=== PATIENT | male | born 1980 | race Caucasian/White ===

== ENCOUNTER → 2019-03-14 16:37 | Outpatient (CLI) | payer OTHER, MEDICAID, SELFPAY ==
[2019-03-14 17:00] LABS: Influenza A and B by PCR Rapid Negative (Negative)
== END ==
PROVIDERS: Family Provider Family Medicine; PCP Family Medicine; Visit Provider Nurse Practitioner Family
DX: R52 Pain, unspecified (principal)
CPT/HCPCS: 87400; 87502

== ENCOUNTER → 2019-06-24 11:35 | Outpatient (CLI) | payer OTHER, MEDICAID, SELFPAY | PROVIDERS: Family Provider Family Medicine; PCP Family Medicine; Visit Provider Nurse Practitioner | DX: L02.91 Cutaneous abscess, unspecified (principal) | CPT/HCPCS: 87070; 87075; 87205 ==

== ENCOUNTER → 2020-06-18 12:38 | Outpatient (CLI) | payer OTHER, MEDICAID, SELFPAY ==
[2020-06-18 13:39] LABS: COVID19 -Nasal RAPID Negative (Negative)
== END ==
PROVIDERS: Family Provider Family Medicine; PCP Family Medicine; Visit Provider Physician Assistant
DX: Z20.822 Contact with and (suspected) exposure to COVID-19 (principal); J02.9 Acute pharyngitis, unspecified
CPT/HCPCS: 87070; 87635

== ENCOUNTER → 2020-06-25 14:27 | Outpatient (CLI) | payer OTHER, SELFPAY ==
[2020-06-25 15:17] LABS: Monotest Negative (Negative)
== END ==
PROVIDERS: Family Provider Family Medicine; PCP Family Medicine; Referring Provider Physician Assistant; Visit Provider Physician Assistant
DX: J02.9 Acute pharyngitis, unspecified (principal)
CPT/HCPCS: 36415; 86318

== ENCOUNTER 2021-01-18 10:57 | Emergency (ER) | payer OTHER, MEDICAID, SELFPAY ==
[2021-01-18 11:17] VITALS: BP 141/96; PULSE 73; RESP 14; TEMP 35.9; O2SAT 98; BMI 36.2
[2021-01-18 11:38] LABS: COVID19 -Nasal RAPID Negative (Negative)
--- NOTE | 2021-01-18 11:40 | ED.URI ---
HPI - URI/Sore Throat General Chief Complaint: Upper Respiratory Symptoms Stated Complaint: sore throat / nasel congestion Time Seen by Provider: 01/18/21 11:01 Source: patient Mode of arrival: Ambulatory Limitations: no limitations History of Present Illness HPI Narrative: 40-year-old male smoker with history of asthma and recent travel to [place] presents with concern about a COVID test. He states that he recently traveled and started developing symptoms last night including runny nose, nasal congestion, sore throat and some dry cough. He has no GI symptoms such as nausea, vomiting or diarrhea. He did get his COVID vaccination. 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 Related Data Home Medications Medication Instructions Recorded Confirmed esomeprazole magnesium 20 mg 20 mg PO #0 08/02/17 06/25/20 capsule,delayed release (Nexium) Previous Rx's Medication Instructions Recorded peak flow meter #1 each 06/08/19 fluticasone propionate 250 1 inh INHALATION BID #28 ea 08/23/20 mcg/actuation blister powder for inhalation hydroxyzine HCl 25 mg tablet 50 mg PO Q6H PRN #60 tab 10/30/20 albuterol sulfate 90 mcg/actuation 2 puff INHALATION Q4-6H PRN #1 12/17/20 aerosol inhaler device trazodone 150 mg tablet 75 mg PO DAILY #15 tab 12/25/20 Allergies Allergy/AdvReac Type Severity Reaction Status Date / Time Penicillins [PENICILLINS] AdvReac Mild RASH Verified 06/25/20 13:52 Review of Systems Review of Systems Narrative: GENERAL: See HPI HEENT: See HPI RESPIRATORY: See HPI CARDIOVASCULAR: Denies chest pain, palpitations, orthopnea, edema, GASTROINTESTINAL: Denies nausea, vomiting, abdominal pain, diarrhea, constipation, melena. : Denies dysuria, frequency, incontinence, hematuria, urinary retention. MUSCULOSKELETAL: denies weakness, joint pain, or bony pain SKIN: Denies rash, skin lesions, or other NEUROLOGIC: Denies weakness, headache, numbness, change in speech, confusion, seizures, incoordination. PSYCHIATRIC: No concerning psychosocial issues. 12 point review of systems is negative except for those stated above Patient History Medical History Abscess Acute maxillary sinusitis Anxiety Cellulitis GERD (gastroesophageal reflux disease) Left rib fracture Moderate persistent asthma without complication (02/10/17) Otitis media Paronychia Sprain of left shoulder Viral syndrome Family History Mother Alcoholism in remission Social History Smoking Status: Current every day smoker alcohol intake: never substance use type: marijuana Smoking Status: Current every day smoker alcohol intake frequency: holidays/special occasions only Substance Use Type: marijuana Exam Narrative Exam Narrative: GEN: AOx3 and in mild distress EYES: Pupils are equal, round, and reactive to light and accommodation. Extraoccular muscles are intact bilaterally. There is no subconjunctival hemorrhage or exudate. CHEST: Lungs are clear to auscultation bilaterally and free of wheezes, rales, or rhonchi. Heart rate is regular rhythm, there are no murmurs, clicks, rubs, or gallops. There is no chest wall tenderness. ABD: Abdomen is soft and nontender. There is no guarding or rebound. Bowel sounds are normal in all 4 quadrants. There is no mass or organomegaly. EXT: Full painless ROM of all extremities with no loss of sensation or strength. SKIN: Warm, pink, and dry. No erythema or rash Initial Vital Signs Initial Vital Signs: Vital Signs Temperature 96.6 F L 01/18/21 11:17 Pulse Rate 73 01/18/21 11:17 Respiratory Rate 14 01/18/21 11:17 Blood Pressure 141/96 H 01/18/21 11:17 Pulse Oximetry 98 01/18/21 11:17 Course Orders Ordered: ED Orders 01/18/21 11:13 COVID19 -Nasal swab/Pre-Proc Stat Vital Signs Vital signs: Vital Signs - 8 hr 01/18/21 11:17 Temperature 96.6 F L Pulse Rate 73 Respiratory Rate 14 Blood Pressure 141/96 H Pulse Oximetry 98 MDM - URI/Sore Throat Lab Data Labs: Lab Results 01/18/21 Range/Units 11:13 SARS-CoV-2 (PCR) Negative (Negative) MDM Narrative Medical decision making narrative: 40-year-old with multiple upper respiratory symptoms and no signs of respiratory distress nor the need for supplemental oxygen. History and physical exam are very reassuring and COVID swab is negative. I did discuss with him that the COVID swabs are not as accurate early in the course and that he should practice isolation until he can get a repeat test in a few days when it is likely to be more accurate. Patient verbalizes an understanding and agreement with the plan and diagnosis. Return precautions given and questions answered to his apparent satisfaction Discharge Plan Departure Patient Disposition: Home Clinical Impression: Upper respiratory virus Instructions: Coronavirus Disease 2019 Activity Restrictions/Additional Instructions: Your COVID test today was negative, but as we discussed it becomes more accurate few days after symptoms started. I would recommend he follow they following instructions and act as if you do have COVID at least until you can get a retest at about the 5 day elías *You have been diagnosed with [ suspected COVID-19] *What to do: * per recommendations from the CDC and the [facility] Department of Health * stay home except to get medical care. Restrict activities outside your home, except for getting medical care. Do not go to work, school, or public areas. Avoid using public transportation, ride sharing, or taxis. * separate yourself from other people in your home. * call ahead before visiting your doctor * Wear a facemask * Cover your coughs and sneezes * Clean your hands often * Avoid sharing household items * Clean all high-touch services every day * Monitor your symptoms and seek prompt medical attention if your illness is worsening, particularly with difficulty in breathing. You may discontinue your isolation when: 1. You have been fever-free for at least 24 hours without the use of fever reducing medication, AND 2. Your symptoms are getting better 3. At least 10 days have passed since symptoms first appeared Individuals with laboratory confirmed COVID-19 who have not had any symptoms may discontinue home isolation when at least 10 days have passed since the date of their first COVID-19 diagnostic test and have had no subsequent illness Prescriptions: No Action esomeprazole magnesium [Nexium] 20 MG capsule,delayed release(DR/EC) 20 mg PO Qty: 0 RF: 0 fluticasone propionate 250 mcg/actuation blister with device 1 inh inhalation BID Qty: 28 RF: 5 albuterol sulfate 90 mcg/actuation HFA aerosol inhaler 2 puff INHALATION Q4-6H PRN (Reason: shortness of breath) Qty: 1 RF: 2 (DME) peak flow meter Device See Rx Instructions [facility] Qty: 1 RF: 0 hydroxyzine HCl 25 mg tablet 50 mg PO Q6H PRN (Reason: anxiety) Qty: 60 RF: 0 trazodone 150 mg tablet 75 mg PO DAILY Qty: 15 RF: 1 Referrals: Annabella Aguilar DO [Primary Care Provider] -
== END 2021-01-18 11:57 | disposition home or self-care (01) ==
PROVIDERS: Emergency Provider Emergency Medicine; Family Provider Family Medicine; PCP Family Medicine
DX: J06.9 Acute upper respiratory infection, unspecified (principal); Z20.822 Contact with and (suspected) exposure to COVID-19
CPT/HCPCS: 87635; 99281; 99282; C9803

== ENCOUNTER 2021-03-24 10:59 | Emergency (ER) | payer OTHER, MEDICAID, SELFPAY ==
[2021-03-24] VITALS (11 sets, daily range): BP systolic 117–134; BP diastolic 69–88; PULSE 61–80; RESP 15–24; TEMP 36.3; O2SAT 95–100; BMI 36.2
--- NOTE | 2021-03-24 11:14 | DI.RAD.S_ITS ---
PROCEDURE: XR CHEST 2V INDICATIONS: Shortness of breath TECHNIQUE: 2 views of the chest were acquired. COMPARISON: None. FINDINGS: Surgical changes and devices: None. Lungs and pleura: Lungs are clear. No pleural effusions or pneumothorax. Mediastinum: Mediastinal contours are normal. Heart size is normal. Bones and chest wall: No suspicious bony abnormalities. Soft tissues appear unremarkable. IMPRESSION: No acute cardiopulmonary process demonstrated radiographically. Dictated by: Bunny John M.D. on 03/24/2021 at 11:45 Approved by: Bunny John M.D. on 03/24/2021 at 11:45
[2021-03-24 11:32] LABS: Add Manual Diff / Slide Review NO; Basophils Absolute Auto 100 /uL (0-100); Basophils Percent Auto 0.5 % (0-2); Eosinophils Absolute Auto 200 /uL (0-450); Eosinophils Percent Auto 1.3 % (2-4); Hematocrit 44.4 % (41-53); Hemoglobin 15.2 g/dL (13.5-17.5); Lymphocytes Absolute Auto 1100 /uL (1100-4500); Lymphocytes Percent Auto 7.8 % (25-40); Mean Corpuscular HGB Conc 34.2 % (30-36); Mean Corpuscular Hemoglobin 31.5 PG (26-34); Monocytes Absolute Auto 800 /uL (0-900); Monocytes Percent Auto 5.7 % (3-14); Neutrophils Absolute Auto 12400 /uL (1500-7000); Neutrophils Percent Auto 84.7 % (50-75); Platelet Count 292 X10^3/uL (150-400); Red Blood Cell Count 4.83 X10^6/uL (4.5-5.9); Red Cell Distribution Width 12.8 % (11.6-14.8); White Blood Cell Count 14.6 X10^3/uL (4.5-11.0)
[2021-03-24 11:40] LABS: Alanine Aminotransferase 20 IU/L (<50); Albumin 4.7 g/dL (3.5-5.0); Albumin Globulin Ratio 1.5 (1.0-2.8); Alkaline Phosphatase 54 U/L (38-126); Aspartate Aminotransferase 29 IU/L (17-59); Bilirubin Total 0.7 mg/dL (0.2-1.3); Blood Urea Nitrogen 16 mg/dL (9-20); Calcium 9.8 mg/dL (8.4-10.2); Carbon Dioxide 26 mmol/L (22-32); Chloride 104 mmol/L (98-107); Estimated Glomerular Filt Rate > 60.0 mL/min (>60); Globulin 3.2 g/dL (1.7-4.1); Glucose 108 mg/dL (70-100); HEMOLYSIS < 15 (0-50); Lactate (Lactic Acid) 1.7 mmol/L (0.7-2.1); Potassium 4.5 mmol/L (3.4-5.1); Sodium 137 mmol/L (137-145); Total Protein 7.9 g/dL (6.3-8.2)
[2021-03-24 12:04] LABS: COVID19 -Nasal RAPID Negative (Negative)
[2021-03-24] MEDS: ALBUTEROL 2.5 MG/3 ML NEB (ADULT) INH (12:17)
[2021-03-24 13:09] LABS: Troponin I < 0.012 ng/mL (0.01-0.034)
[2021-03-24 14:16] LABS: D Dimer < 200 ng/mL (<230)
--- NOTE | 2021-04-01 09:30 | ED.SOB ---
HPI - SOB/Dyspnea <Eagle Haley PA-C - Last Filed: 04/01/21 09:41> General Chief Complaint: Shortness of Breath/Dyspnea Stated Complaint: SOB Time Seen by Provider: 03/24/21 11:55 Source: patient Mode of arrival: Ambulatory Limitations: no limitations History of Present Illness HPI Narrative: 40-year-old male with past medical history asthma, anxiety presents to the ED with 1 day of shortness of breath. Patient reports that he has been sick with a URI for the past 1 week, started feeling shortness of breath today, used the inhaler once without much relief. Patient denies fever, chills, chest pain, shortness of breath, cough, nausea, vomiting, abdominal pain, dysuria, lightheadedness, dizziness, syncope. Related Data Home Medications Medication Instructions Recorded Confirmed esomeprazole magnesium 20 mg 20 mg PO #0 08/02/17 06/25/20 capsule,delayed release (Nexium) Previous Rx's Medication Instructions Recorded peak flow meter #1 each 06/08/19 fluticasone propionate 250 1 inh INHALATION BID #28 ea 08/23/20 mcg/actuation blister powder for inhalation hydroxyzine HCl 25 mg tablet 50 mg PO Q6H PRN #60 tab 10/30/20 albuterol sulfate 90 mcg/actuation 2 puff INHALATION Q4-6H PRN #1 12/17/20 aerosol inhaler device trazodone 150 mg tablet 75 mg PO DAILY #15 tab 12/25/20 venlafaxine 37.5 mg 37.5 mg PO DAILY #30 cap 03/06/21 capsule,extended release 24 hr Allergies Allergy/AdvReac Type Severity Reaction Status Date / Time Penicillins [PENICILLINS] AdvReac Mild RASH Verified 06/25/20 13:52 Review of Systems <Eagle Haley PA-C - Last Filed: 04/01/21 09:41> Constitutional Constitutional: Denies chills, Denies fatigue, Denies fever(s), Denies frequent falls, Denies lethargy and Denies weakness Eyes Eyes: Denies change in vision, Denies eye discharge, Denies irritation and Denies loss of vision ENT Ears, Nose, Mouth, and Throat: Denies change in voice, Denies dizziness, Denies neck pain, Denies sore throat and Denies throat swelling Cardiovascular Cardiovascular: Denies chest pain, Denies irregular heart rhythm, Denies lightheadedness, Denies palpitations, Reports dyspnea, Denies dyspnea on exertion and Denies orthopnea Respiratory Respiratory: Denies cough, Reports dyspnea, Denies dyspnea on exertion and Denies wheezing Gastrointestinal Gastrointestinal: Denies abdominal pain, Denies change in bowel habits, Denies diarrhea, Denies nausea and Denies vomiting Musculoskeletal Musculoskeletal: Denies neck pain and Denies numbness Integumentary/Breasts Skin/Breast: Denies pruritus, Denies erythema, Denies rash and Denies wounds Neurologic Neurologic: Denies behavioral changes, Denies confusion, Denies dizziness, Denies frequent falls, Denies loss of vision, Denies numbness and Denies weakness Psychiatric Psychiatric: Denies anxiety, Denies behavioral changes, Denies confusion, Denies depression, Denies homicidal ideation and Denies suicidal ideation Endocrine Endocrine: Denies fatigue, Denies flushing and Denies palpitations Hematologic/Lymphatic Hematologic/Lymphatic: Denies easy bruising Allergic/Immunologic Allergic/Immunologic: Denies urticaria, Denies throat swelling and Denies wheezing Patient History <Eagle Haley PA-C - Last Filed: 04/01/21 09:41> Medical History Abscess Acute maxillary sinusitis Anxiety Cellulitis GERD (gastroesophageal reflux disease) Left rib fracture Moderate persistent asthma without complication (02/10/17) Otitis media Paronychia Sprain of left shoulder Viral syndrome Family History Mother Alcoholism in remission Social History Smoking Status: Current every day smoker alcohol intake: never substance use type: marijuana Smoking Status: Current every day smoker alcohol intake frequency: holidays/special occasions only Substance Use Type: marijuana Exam <Eagle Haley PA-C - Last Filed: 04/01/21 09:41> Initial Vital Signs Initial Vital Signs: Vital Signs Pulse Rate 80 03/24/21 11:09 Pulse Oximetry 98 03/24/21 11:09 Const General: cooperative HENMT Head: normocephalic and atraumatic Ears: external ears normal and TM's normal bilaterally Nose: external nose normal and No nasal discharge Face and sinus: sinuses nontender, face symmetric, no sinus tenderness and No dry mucous membranes Mouth: oral mucosae normal and moist mucous membranes Teeth and gingiva: dentition normal Throat: tonsils normal and uvula midline Eyes General: appearance normal, both eyes and all related structures Eyelids: eyelids normal Conjunctivae: conjunctivae normal Sclera: sclerae normal Pupils: PERRL EOM: EOM intact bilaterally Neck Neck: normal visual inspection, trachea midline, No lymphadenopathy, No midline deformity and No JVD Lymphatic: No lymphedema Chest Chest: normal inspection of the chest Resp Effort & Inspection: normal respiratory effort, able to speak in complete sentences, no respiratory distress and no use of accessory muscles Auscultation: no crackles, no rales, no rhonchi and wheezes Other: Bilateral diffuse wheezes Cardio Rate: regular rate Rhythm: regular rhythm Heart Sounds: no click, no gallops, no murmurs and no rubs Pulses: normal peripheral pulses GI Inspection: non-distended Palpation: soft, no hepatosplenomegaly, No guarding, No pulsatile mass and No tender Auscultation: normal bowel sounds Back/Spine/Pelvis Back: No CVA tenderness Cervical Spine: cervical ROM normal and No pain with cervical ROM Thoracic/Lumbar Spine: thoracic and lumbar spine normal to inspection Skin General: no rashes or lesions noted, No jaundice and No petechiae Neuro General: patient alert, patient oriented x3, gait normal and no focal motor deficits Speech: speech normal Extrem General: full ROM, no clubbing, cyanosis or edema, no pedal edema and no calf tenderness Psych Appearance: well kempt Mental Status: mental status grossly normal Attitude: cooperative Thought Content: normal and suicidality Judgment: judgment good <Darren Cool DO - Last Filed: 04/01/21 14:14> Initial Vital Signs Initial Vital Signs: Vital Signs Pulse Rate 80 03/24/21 11:09 Pulse Oximetry 98 03/24/21 11:09 Course <Eagle Haley PA-C - Last Filed: 04/01/21 09:41> Course Course Narrative: Labs, x-ray negative for acute findings. Patient's symptoms greatly improved with albuterol, ipratropium. Will discharge home with ED return precautions and PCP follow-up. Orders Ordered: Discontinued Medications Albuterol/Ipratropium (Albuterol/Ipratropium 3 Ml Ampul) 3 ml INH NOW ONE Stop: 03/24/21 12:14 Last Admin: 03/24/21 13:03 Dose: Not Given Documented by: LARRY <Darren Cool DO - Last Filed: 04/01/21 14:14> Orders Ordered: Discontinued Medications Albuterol/Ipratropium (Albuterol/Ipratropium 3 Ml Ampul) 3 ml INH NOW ONE Stop: 03/24/21 12:14 Last Admin: 03/24/21 13:03 Dose: Not Given Documented by: LARRY MDM - SOB/Dyspnea <Eagle Haley PA-C - Last Filed: 04/01/21 09:41> Lab Data Lab results narrative: labs within normal limits Result diagrams: 03/24/21 11:20 03/24/21 11:20 Labs: Lab Results 03/24/21 03/24/21 03/24/21 Range/Units 11:09 11:20 11:20 WBC 14.6 H (4.5-11.0) X10^3/uL RBC 4.83 (4.5-5.9) X10^6/uL Hgb 15.2 (13.5-17.5) g/dL Hct 44.4 (41-53) % MCV 92.0 (80-100) fL MCH 31.5 (26-34) PG MCHC 34.2 (30-36) % RDW 12.8 (11.6-14.8) % Plt Count 292 (150-400) X10^3/uL Neut % (Auto) 84.7 H (50-75) % Lymph % (Auto) 7.8 L (25-40) % [place] % (Auto) 5.7 (3-14) % Eos % (Auto) 1.3 L (2-4) % Baso % (Auto) 0.5 (0-2) % Neut # (Auto) 75899 H (8744-8252) /uL Lymph # (Auto) 1100 (3353-3901) /uL [place] # (Auto) 800 (0-900) /uL Eos # (Auto) 200 (0-450) /uL Baso # (Auto) 100 (0-100) /uL D-Dimer (<230) ng/mL Sodium 137 (137-145) mmol/L Potassium 4.5 (3.4-5.1) mmol/L Chloride 104 (98-107) mmol/L Carbon Dioxide 26 (22-32) mmol/L BUN 16 (9-20) mg/dL Creatinine 0.94 (0.66-1.25) mg/dL Estimated GFR > 60.0 (>60) mL/min BUN/Creatinine Ratio 17.0 (6-22) Glucose 108 H (70-100) mg/dL Lactate (0.7-2.1) mmol/L Calcium 9.8 (8.4-10.2) mg/dL Total Bilirubin 0.7 (0.2-1.3) mg/dL AST 29 (17-59) IU/L ALT 20 (<50) IU/L Alkaline Phosphatase 54 (38-126) U/L Troponin I (0.01-0.034) ng/mL Total Protein 7.9 (6.3-8.2) g/dL Albumin 4.7 (3.5-5.0) g/dL Globulin 3.2 (1.7-4.1) g/dL Albumin/Globulin Ratio 1.5 (1.0-2.8) SARS-CoV-2 (PCR) Negative (Negative) 03/24/21 03/24/21 03/24/21 Range/Units 11:20 11:20 11:20 WBC (4.5-11.0) X10^3/uL RBC (4.5-5.9) X10^6/uL Hgb (13.5-17.5) g/dL Hct (41-53) % MCV (80-100) fL MCH (26-34) PG MCHC (30-36) % RDW (11.6-14.8) % Plt Count (150-400) X10^3/uL Neut % (Auto) (50-75) % Lymph % (Auto) (25-40) % [place] % (Auto) (3-14) % Eos % (Auto) (2-4) % Baso % (Auto) (0-2) % Neut # (Auto) (2021-9350) /uL Lymph # (Auto) (7826-8735) /uL [place] # (Auto) (0-900) /uL Eos # (Auto) (0-450) /uL Baso # (Auto) (0-100) /uL D-Dimer < 200 (<230) ng/mL Sodium (137-145) mmol/L Potassium (3.4-5.1) mmol/L Chloride (98-107) mmol/L Carbon Dioxide (22-32) mmol/L BUN (9-20) mg/dL Creatinine (0.66-1.25) mg/dL Estimated GFR (>60) mL/min BUN/Creatinine Ratio (6-22) Glucose (70-100) mg/dL Lactate 1.7 (0.7-2.1) mmol/L Calcium (8.4-10.2) mg/dL Total Bilirubin (0.2-1.3) mg/dL AST (17-59) IU/L ALT (<50) IU/L Alkaline Phosphatase (38-126) U/L Troponin I < 0.012 (0.01-0.034) ng/mL Total Protein (6.3-8.2) g/dL Albumin (3.5-5.0) g/dL Globulin (1.7-4.1) g/dL Albumin/Globulin Ratio (1.0-2.8) SARS-CoV-2 (PCR) (Negative) Imaging Data Chest x-ray: Radiologist's Impression: PROCEDURE:? XR CHEST 2V ? INDICATIONS:? Shortness of breath ? TECHNIQUE:? 2 views of the chest were acquired.? ? COMPARISON:? None. ? FINDINGS:? ? Surgical changes and devices:? None.? ? Lungs and pleura:? Lungs are clear.? No pleural effusions or pneumothorax.? ? Mediastinum:? Mediastinal contours are normal.? Heart size is normal.? ? Bones and chest wall:? No suspicious bony abnormalities.? Soft tissues appear unremarkable.? ? IMPRESSION:? No acute cardiopulmonary process demonstrated radiographically. ? ? Dictated by: Bunny John M.D. on 03/24/2021 at 11:45 ? ? Approved by: Bunny John M.D. on 03/24/2021 at 11:45 ? MDM Narrative Medical decision making narrative: 40-year-old male with past medical history anxiety, asthma presents to the ED with 1 day of shortness of breath. Physical exam positive for bilateral diffuse wheezes. Patient otherwise stable, satting in the high 90s on room air. Patient's symptoms likely due to an acute asthma exacerbation. Will give albuterol, ipratropium nebulizer treatment. unlikely pneumonia given symptoms, physical exam, however will obtain labs, x-rays. <Darren Cool, DO - Last Filed: 04/01/21 14:14> Lab Data Labs: Lab Results 03/24/21 03/24/21 03/24/21 Range/Units 11:09 11:20 11:20 WBC 14.6 H (4.5-11.0) X10^3/uL RBC 4.83 (4.5-5.9) X10^6/uL Hgb 15.2 (13.5-17.5) g/dL Hct 44.4 (41-53) % MCV 92.0 (80-100) fL MCH 31.5 (26-34) PG MCHC 34.2 (30-36) % RDW 12.8 (11.6-14.8) % Plt Count 292 (150-400) X10^3/uL Neut % (Auto) 84.7 H (50-75) % Lymph % (Auto) 7.8 L (25-40) % [place] % (Auto) 5.7 (3-14) % Eos % (Auto) 1.3 L (2-4) % Baso % (Auto) 0.5 (0-2) % Neut # (Auto) 53627 H (4560-6259) /uL Lymph # (Auto) 1100 (6689-6596) /uL [place] # (Auto) 800 (0-900) /uL Eos # (Auto) 200 (0-450) /uL Baso # (Auto) 100 (0-100) /uL D-Dimer (<230) ng/mL Sodium 137 (137-145) mmol/L Potassium 4.5 (3.4-5.1) mmol/L Chloride 104 (98-107) mmol/L Carbon Dioxide 26 (22-32) mmol/L BUN 16 (9-20) mg/dL Creatinine 0.94 (0.66-1.25) mg/dL Estimated GFR > 60.0 (>60) mL/min BUN/Creatinine Ratio 17.0 (6-22) Glucose 108 H (70-100) mg/dL Lactate (0.7-2.1) mmol/L Calcium 9.8 (8.4-10.2) mg/dL Total Bilirubin 0.7 (0.2-1.3) mg/dL AST 29 (17-59) IU/L ALT 20 (<50) IU/L Alkaline Phosphatase 54 (38-126) U/L Troponin I (0.01-0.034) ng/mL Total Protein 7.9 (6.3-8.2) g/dL Albumin 4.7 (3.5-5.0) g/dL Globulin 3.2 (1.7-4.1) g/dL Albumin/Globulin Ratio 1.5 (1.0-2.8) SARS-CoV-2 (PCR) Negative (Negative) 03/24/21 03/24/21 03/24/21 Range/Units 11:20 11:20 11:20 WBC (4.5-11.0) X10^3/uL RBC (4.5-5.9) X10^6/uL Hgb (13.5-17.5) g/dL Hct (41-53) % MCV (80-100) fL MCH (26-34) PG MCHC (30-36) % RDW (11.6-14.8) % Plt Count (150-400) X10^3/uL Neut % (Auto) (50-75) % Lymph % (Auto) (25-40) % [place] % (Auto) (3-14) % Eos % (Auto) (2-4) % Baso % (Auto) (0-2) % Neut # (Auto) (4964-0608) /uL Lymph # (Auto) (4421-5415) /uL [place] # (Auto) (0-900) /uL Eos # (Auto) (0-450) /uL Baso # (Auto) (0-100) /uL D-Dimer < 200 (<230) ng/mL Sodium (137-145) mmol/L Potassium (3.4-5.1) mmol/L Chloride (98-107) mmol/L Carbon Dioxide (22-32) mmol/L BUN (9-20) mg/dL Creatinine (0.66-1.25) mg/dL Estimated GFR (>60) mL/min BUN/Creatinine Ratio (6-22) Glucose (70-100) mg/dL Lactate 1.7 (0.7-2.1) mmol/L Calcium (8.4-10.2) mg/dL Total Bilirubin (0.2-1.3) mg/dL AST (17-59) IU/L ALT (<50) IU/L Alkaline Phosphatase (38-126) U/L Troponin I < 0.012 (0.01-0.034) ng/mL Total Protein (6.3-8.2) g/dL Albumin (3.5-5.0) g/dL Globulin (1.7-4.1) g/dL Albumin/Globulin Ratio (1.0-2.8) SARS-CoV-2 (PCR) (Negative) Discharge Plan Departure Patient Disposition: Home Clinical Impression: SOB (shortness of breath) Instructions: DI for Asthma -- Adult Activity Restrictions/Additional Instructions: You were evaluated in the ED today for shortness of breath. Your lab results, EKG, chest x-ray were normal. You were treated with albuterol and ipratropium nebulizer in the ED, which improved her symptoms. Your symptoms are likely due to an asthma exacerbation due to a upper respiratory infection. Follow-up with your PCP in 2 days. Return to the ED if your symptoms worsen, you have trouble breathing, you experience chest pain. Prescriptions: No Action esomeprazole magnesium [Nexium] 20 MG capsule,delayed release(DR/EC) 20 mg PO Qty: 0 RF: 0 fluticasone propionate 250 mcg/actuation blister with device 1 inh inhalation BID Qty: 28 RF: 5 albuterol sulfate 90 mcg/actuation HFA aerosol inhaler 2 puff INHALATION Q4-6H PRN (Reason: shortness of breath) Qty: 1 RF: 2 venlafaxine 37.5 mg capsule,extended release 24hr 37.5 mg PO DAILY Qty: 30 RF: 3 (DME) peak flow meter Device See Rx Instructions .ROUTE .[facility] Qty: 1 RF: 0 hydroxyzine HCl 25 mg tablet 50 mg PO Q6H PRN (Reason: anxiety) Qty: 60 RF: 0 trazodone 150 mg tablet 75 mg PO DAILY Qty: 15 RF: 1 Referrals: Annabella Aguilar DO [Primary Care Provider] - <Darren Cool DO - Last Filed: 04/01/21 14:14> Cosign ED Attending Cosignature Attestation: Dr Cool Co-Sign Statement: I was available for consultation during this patient's emergency department visit. This chart is signed by myself for administrative purposes only. I did not have direct contact with this patient during this visit. They were seen independently by the APC.
== END 2021-03-24 15:00 | disposition home or self-care (01) ==
PROVIDERS: Emergency Medicine; Emergency Provider Student in an Organized Health Care Education/Training Program; Family Provider Family Medicine; PCP Family Medicine
DX: R06.02 Shortness of breath (principal); J45.909 Unspecified asthma, uncomplicated; Z20.822 Contact with and (suspected) exposure to COVID-19
CPT/HCPCS: 36415; 71046; 80053; 83605; 84484; 85025; 85379; 87635; 93005; 93010; 99284; C9803; J7613

== ENCOUNTER → 2021-10-28 15:50 | Outpatient (CLI) | payer OTHER, MEDICAID, SELFPAY ==
[2021-10-28 16:42] LABS: COVID19 -Nasal RAPID Negative (Negative)
== END ==
PROVIDERS: Family Provider Family Medicine; PCP Family Medicine; Visit Provider Physician Assistant
DX: Z20.822 Contact with and (suspected) exposure to COVID-19 (principal)
CPT/HCPCS: 87635

== ENCOUNTER 2024-05-10 17:36 | Emergency (ER) | payer SELFPAY ==
[2024-05-10 17:41] VITALS: BP 174/94; PULSE 106; RESP 16; TEMP 37.1; O2SAT 100; BMI 33.5
--- NOTE | 2024-05-10 18:29 | ED_ITS ---
HPI - Recheck/Abnormal Lab/Rx General Chief Complaint: Recheck/Abnormal Lab/Rx Stated Complaint: body aches, fatigue, upper respiratory Time Seen by Provider: 05/10/24 18:28 Source: patient Mode of arrival: Ambulatory Limitations: no limitations History of Present Illness HPI narrative: Patient is a 43-year-old male. Over the past couple days has had body aches, fatigue, upper respiratory symptoms but is here specifically for refill of his Lexapro. He was on 10 mg once a day. States he has been out of his medication for the past several days. States that he feels like he was spiraling in some ways. States he does not want any testing for his upper respiratory symptoms and would only like a refill of his Lexapro. Related Data Previous Rx's Medication Instructions Recorded albuterol sulfate 90 mcg/actuation 2 puff inhalation Q4-6H PRN 09/30/23 aerosol inhaler shortness of breath or wheezing #8.5 grams esomeprazole magnesium 20 mg 40 mg (2 x 20 mg) PO DAILY #60 caps 09/30/23 capsule,delayed release (Nexium) inhalational spacing device #1 ea 09/30/23 peak flow meter #1 ea 09/30/23 fluticasone propionate 250 1 inh inhalation BID #60 ea 11/29/23 mcg/actuation blister powder for inhalation propranolol 10 mg tablet 10 mg PO ONCE #20 tabs 12/23/23 sildenafil 100 mg tablet 100 mg PO DAILY PRN sexual 12/23/23 activity #90 tabs escitalopram oxalate 10 mg tablet 10 mg PO ONCE #90 tabs 03/22/24 escitalopram oxalate 10 mg tablet 10 mg PO DAILY #60 tabs 05/10/24 (Lexapro) Allergies Allergy/AdvReac Type Severity Reaction Status Date / Time Penicillins [PENICILLINS] AdvReac Mild RASH Verified 12/23/23 14:57 Review of Systems Review of Systems Narrative: see hpi Patient History Medical History Depression Asthma Erectile dysfunction Tobacco use disorder Seasonal allergies Alcohol use disorder, mild, in early remission Otitis media Anxiety Viral syndrome Cellulitis Abscess Paronychia GERD (gastroesophageal reflux disease) Moderate persistent asthma without complication (02/10/17) Left rib fracture Sprain of left shoulder Acute maxillary sinusitis Family History Mother Alcoholism in remission Social History Smoking Status: Current every day smoker alcohol intake: never substance use type: marijuana Smoking Status: Current every day smoker alcohol intake frequency: holidays/special occasions only Substance Use Type: marijuana Exam Initial Vital Signs Initial Vital Signs: Vital Signs Temperature 98.7 F 05/10/24 17:41 Pulse Rate 106 H 05/10/24 17:41 Respiratory Rate 16 05/10/24 17:41 Blood Pressure 174/94 H 05/10/24 17:41 Pulse Oximetry 100 05/10/24 17:41 Oxygen Delivery Method Room Air 05/10/24 17:41 Const General: cooperative, comfortable and No ill appearing Resp Effort & Inspection: normal respiratory effort Cardio Rate: regular rate GI Inspection: normal to inspection Skin General: no rashes or lesions noted Neuro General: patient alert and patient awake Course Vital Signs Vital signs: Vital Signs - 8 hr 05/10/24 17:41 Temperature 98.7 F Pulse Rate 106 H Respiratory Rate 16 Blood Pressure 174/94 H Pulse Oximetry 100 Oxygen Delivery Method Room Air MDM - Recheck/Abnormal Lab/Rx MDM Narrative Medical decision making narrative: I will refill his medications. A prescription was sent to the pharmacy of his choice. Informed that he needed to contact is primary provider to discuss further long-term medication management and refills. Discharge Plan Departure Patient Disposition: Home Clinical Impression: Medication refill Activity Restrictions/Additional Instructions: It was important that you make a follow-up appointment with your primary care doctor for long-term medication refills. Return to the emergency department for new symptoms. Prescriptions: New escitalopram oxalate [Lexapro] 10 mg tablet 10 mg PO DAILY Qty: 60 2RF No Action fluticasone propionate 250 mcg/actuation blister with device 1 inh inhalation BID Qty: 60 6RF escitalopram oxalate 10 mg tablet 10 mg PO ONCE Qty: 90 3RF albuterol sulfate 90 mcg/actuation HFA aerosol inhaler 2 puff inhalation Q4-6H PRN (Reason: shortness of breath or wheezing) Qty: 8.5 2RF esomeprazole magnesium [Nexium] 20 mg capsule,delayed release(DR/EC) 40 mg PO DAILY Qty: 60 0RF (DME) inhalational spacing device Spacer See Rx Instructions .ROUTE .MEDSUPPLY Qty: 1 0RF Rx Instructions: As directed (DME) peak flow meter Device See Rx Instructions .ROUTE .MEDSUPPLY Qty: 1 0RF Rx Instructions: As directed propranolol 10 mg tablet 10 mg PO ONCE Qty: 20 0RF Rx Instructions: Take 1-2 tabs as needed for anxiety attacks. sildenafil 100 mg tablet 100 mg PO DAILY PRN (Reason: sexual activity) Qty: 90 0RF Rx Instructions: administer 30 minutes to 4 hours before activity Referrals: Ernestine Fang, [employer] [Primary Care Provider] - Stand Alone Forms: Patient Portal/API/Survey
== END 2024-05-10 18:33 | disposition home or self-care (01) ==
PROVIDERS: Emergency Provider Emergency Medicine; Family Provider Family Medicine; PCP Nurse Practitioner Family
DX: Z76.0 Encounter for issue of repeat prescription (principal); R53.83 Other fatigue
CPT/HCPCS: 99281